=== PATIENT | female | born 1970 | race Caucasian/White ===

== ENCOUNTER → 2017-06-24 | Outpatient (CLI) | payer OTHER ==
[~2017-06-24] MED LIST: CIPRO500 MG
== END | disposition home or self-care (01) ==
LOC: RAD 09:18
DX: M54.2 Cervicalgia (principal); M54.5 Low back pain; M75.52 Bursitis of left shoulder

== ENCOUNTER 2017-10-20 13:46 | Outpatient (CLI) | payer OTHER | END 2017-10-20 14:07 | disposition home or self-care (01) | LOC: MAMO-SONO 13:46 | DX: Z12.31 Encounter for screening mammogram for malignant neoplasm of breast (principal); R92.2 Inconclusive mammogram; E04.2 Nontoxic multinodular goiter ==

== ENCOUNTER → 2018-03-23 | Outpatient (CLI) | payer OTHER | END | disposition home or self-care (01) | LOC: NUCLEAR 13:54 | DX: M81.0 Age-related osteoporosis without current pathological fracture (principal) ==

== ENCOUNTER 2018-07-12 13:20 | Outpatient (CLI) | payer OTHER | END 2018-07-12 13:41 | disposition home or self-care (01) | LOC: MAMO-SONO 13:20 | DX: N60.21 Fibroadenosis of right breast (principal); N60.22 Fibroadenosis of left breast; Z12.31 Encounter for screening mammogram for malignant neoplasm of breast ==

== ENCOUNTER 2018-12-01 08:47 | Outpatient (CLI) | payer OTHER | END 2018-12-01 08:55 | disposition home or self-care (01) | LOC: SONOGRAMA 08:47 | DX: R10.2 Pelvic and perineal pain (principal) ==

== ENCOUNTER 2019-03-08 11:56 | Outpatient (CLI) | payer OTHER | END 2019-03-08 11:58 | disposition home or self-care (01) | LOC: SONOGRAMA 11:56 | DX: R10.2 Pelvic and perineal pain (principal) ==

== ENCOUNTER 2019-07-16 09:59 | Outpatient (CLI) | payer OTHER | END 2019-07-16 10:15 | disposition home or self-care (01) | LOC: MAMO-SONO 09:59 | DX: Z12.31 Encounter for screening mammogram for malignant neoplasm of breast (principal); Z80.3 Family history of malignant neoplasm of breast ==

== ENCOUNTER 2019-08-02 13:29 | Outpatient (CLI) | payer OTHER | END 2019-08-02 13:41 | disposition home or self-care (01) | LOC: MRI 13:29 | DX: M50.30 Other cervical disc degeneration, unspecified cervical region (principal) | CPT/HCPCS: 72141 ==

== ENCOUNTER 2020-01-29 09:21 | Outpatient (CLI) | payer OTHER | END 2020-01-29 09:35 | disposition home or self-care (01) | LOC: MRI 09:21 | DX: M51.27 Other intervertebral disc displacement, lumbosacral region (principal) | CPT/HCPCS: 72149 ==

== ENCOUNTER 2020-04-07 13:42 | Outpatient (CLI) | payer OTHER | END 2020-04-07 13:46 | disposition home or self-care (01) | LOC: MAMO-SONO 13:42 | DX: Z12.31 Encounter for screening mammogram for malignant neoplasm of breast (principal); N64.59 Other signs and symptoms in breast; N60.01 Solitary cyst of right breast; N60.02 Solitary cyst of left breast ==

== ENCOUNTER 2020-04-30 11:12 | Outpatient (CLI) | payer OTHER | END 2020-04-30 11:41 | disposition home or self-care (01) | LOC: RAD 11:12 | PROVIDERS: ATTEND Surgery | DX: N60.22 Fibroadenosis of left breast (principal) ==

== ENCOUNTER 2020-07-03 10:32 | Outpatient (CLI) | payer OTHER | END 2020-07-03 10:34 | disposition home or self-care (01) | LOC: NUCLEAR 10:32 | PROVIDERS: ATTEND Obstetrics & Gynecology | DX: M81.0 Age-related osteoporosis without current pathological fracture (principal) ==

== ENCOUNTER 2021-04-03 11:48 | Outpatient (CLI) | payer OTHER | END 2021-04-03 12:03 | disposition home or self-care (01) | LOC: MRI 11:48 | DX: M51.27 Other intervertebral disc displacement, lumbosacral region (principal) | CPT/HCPCS: 72148 ==

== ENCOUNTER 2021-04-08 07:56 | Outpatient (CLI) | payer OTHER | END 2021-04-08 12:28 | disposition home or self-care (01) | LOC: MAMO-SONO 07:56 | PROVIDERS: ATTEND Surgery | DX: N60.82 Other benign mammary dysplasias of left breast (principal) ==

== ENCOUNTER 2022-05-06 12:39 | Outpatient (CLI) | payer OTHER | END 2022-05-06 12:52 | disposition home or self-care (01) | LOC: MAMO-SONO 12:39 | PROVIDERS: ATTEND Surgery | DX: N60.82 Other benign mammary dysplasias of left breast (principal) ==

== ENCOUNTER 2023-05-11 14:58 | Outpatient (CLI) | payer OTHER | END 2023-05-11 15:20 | disposition home or self-care (01) | LOC: MAMO-SONO 14:58 | DX: N60.82 Other benign mammary dysplasias of left breast (principal) ==

== ENCOUNTER 2023-05-31 09:51 | Outpatient (CLI) | payer OTHER | END 2023-06-03 09:53 | disposition home or self-care (01) | LOC: NUCLEAR 09:51 | PROVIDERS: ATTEND Obstetrics & Gynecology | DX: M81.0 Age-related osteoporosis without current pathological fracture (principal) ==

== ENCOUNTER 2024-03-12 14:46 | Outpatient (CLI) | payer OTHER | END 2024-03-12 16:00 | disposition home or self-care (01) | LOC: RAD 14:46 | PROVIDERS: ATTEND Specialist | DX: M15.8 Other polyosteoarthritis (principal) ==

== ENCOUNTER 2024-04-04 13:16 | Outpatient (CLI) | payer OTHER | END 2024-04-04 13:36 | disposition home or self-care (01) | LOC: MRI 13:16 | PROVIDERS: ATTEND Physical Medicine & Rehabilitation | DX: M16.11 Unilateral primary osteoarthritis, right hip (principal); S73.191A Other sprain of right hip, initial encounter; X58.XXXA Exposure to other specified factors, initial encounter; Y93.9 Activity, unspecified; Y92.9 Unspecified place or not applicable; Y99.9 Unspecified external cause status | CPT/HCPCS: 73721 ==

== ENCOUNTER 2024-05-24 13:09 | Outpatient (CLI) | payer OTHER | END 2024-05-24 13:21 | disposition home or self-care (01) | LOC: MAMO-SONO 13:09 | DX: N60.82 Other benign mammary dysplasias of left breast (principal) ==